=== PATIENT | female | born 1950 | race Caucasian/White ===

== ENCOUNTER 2017-09-20 08:46 | Outpatient (CLI) | payer MEDICARE, BC ==
[2017-09-20 09:58] LABS: Hemoglobin 14.1 g/dL (12.0-16.0); Mean Corpuscular Hemoglobin 29.7 pg (27.0-31.0); Mean Corpuscular Volume 92.8 fl (81.0-99.0); Mean Platelet Volume 7.6 fL (7.4-10.4); Platelet Count 246 thou/uL (130-400); RBC Distribution Width 11.4 % (11.5-14.5); Red Blood Cell (RBC) Count 4.75 mill/uL (4.20-5.40); White Blood Cell (WBC) Count 5.8 thou/uL (4.8-10.8)
--- NOTE | 2017-09-20 10:56 | RAD ---
PA AND LATERAL VIEWS CHEST: Date: 09/20/17 HISTORY: Preoperative evaluation. FINDINGS: The heart size is normal. The lungs are well expanded without confluent areas of consolidation, pneum othoraces, or pleural effusions. There are degenerative changes in the spine. IMPRESSION: No radiographic evidence of acute cardiopulmonary process. POS: JUANH
== END 2017-09-20 08:47 | disposition home or self-care (01) ==
LOC: LABBT 08:46
PROVIDERS: ATTEND Orthopaedic Surgery
DX: Z01.818 Encounter for other preprocedural examination (principal); Z01.812 Encounter for preprocedural laboratory examination; M65.311 Trigger thumb, right thumb
CPT/HCPCS: 71046; 85027

== ENCOUNTER 2017-09-22 07:54 | Day surgery (SDC) | payer MEDICARE, BC ==
--- NOTE | 2017-09-21 08:50 | HP ---
HISTORY OF PRESENT ILLNESS: The patient is a 67-year-old right-handed female with a several month hi story of pain, popping and catching in her dominant right thumb. She has had no injury. She has had persistent symptoms despite rest, restriction of activities, anti-inflammatory medications, and a pr evious flexor tendon sheath injection which provided short term relief approximately 4 months ago. PAST MEDICAL HISTORY: The patient has had previous carpal tunnel release. She has a history of esteban rgies. CURRENT MEDICATIONS: Thyroid replacement. ALLERGIES: She has no known allergies. FAMILY HISTORY/SOCIAL HISTORY/REVIEW OF SYSTEMS: Otherwise unremarkable. PHYSICAL EXAMINATION: GENERAL: Reveals a healthy, thin female. HEENT: Unremarkable. NECK: Supple. CHEST: Clear. HEART: Regular rate and rhythm. ABDOMEN: Soft, nontender. PELVIC/RECTAL/BREAST: Exams are deferred. EXTREMITIES: Pertinent findings related to the right thumb. There is tenderness and a nodule presen t over the A1 sonia. There is triggering with range of motion, all tendons are functioning. There is no instability. Neurovascular exam is intact. IMPRESSION: Right trigger thumb. PLAN: Right trigger thumb release. The nature of the surgery, length of recovery, and potential com plications such as infection, loss of motion, neurovascular injury, recurrence, and need for addition al treatment or repeat surgery have been discussed in detail.
[2017-09-22] MEDS ORDERED: Scopolamine 1.5 mg/72 hour Patch ONE (08:27)
[2017-09-22] MEDS ORDERED: Midazolam HCl 2 mg/2 ml Vial ONE (09:16)
[2017-09-22] MEDS ORDERED: CEFAZOLIN/Water 2 GM/20 ML SYRINGE ONE (09:57)
[2017-09-22] MEDS ORDERED: Lidocaine 1% (PF) 30 ML VIAL ONE (10:00)
[2017-09-22] MEDS ORDERED: Fentanyl 100 MCG/2 ML VIAL ONE (10:22)
--- NOTE | 2017-09-22 12:05 | OP ---
DATE OF PROCEDURE: 09/22/2017 SURGEON: Jeovany Amador M.D. ANESTHESIA: General. PREOPERATIVE DIAGNOSIS: Right trigger thumb. POSTOPERATIVE DIAGNOSIS: Right trigger thumb. PROCEDURE PERFORMED: Right trigger thumb release. NARRATIVE REPORT: After satisfactory anesthesia was induced in supine position, the patient was prep ped and draped in the routine manner. Right arm was elevated, exsanguinated with an Esmarch bandage, and the tourniquet inflated to 225 mmHg. A 2 cm transverse incision was made over the palmar aspect of the right thumb A1 sonia, carried down to subcutaneous tissues. Bleeding points controlled with Bovie cautery. Care was taken to avoid injury to the neurovascular bundles, which were gently retra cted. The A1 sonia was then exposed with sharp and blunt dissection and then divided in its entiret y from a proximal to distal with small scissors. It was moderately severely constricted and there wa s moderate tenosynovitis present. Following release of the A1 sonia, there is full range of motion of the thumb and the flexor tendons could be brought into the wound and there was no further triggeri ng. The wound was then thoroughly irrigated and the subcutaneous tissues injected with 10 mL of 1% l idocaine. Skin was closed with interrupted 4-0 nylon. A sterile bulky compressive dressing was appl ied and the tourniquet deflated after 18 minutes. The hand promptly pinked up and the patient was aw akened and taken to the recovery room in stable condition. There were no apparent intraoperative com plications. The estimated blood loss was negligible. The patient will be discharged home in satisfactory condition. She was instructed in ice, elevation, and given written wound care instructions. She has hydrocodone at home for pain. She will be reche cked in my office in 10-14 days or sooner if there are any problems prior to that time.
[2017-09-22] MEDS ORDERED: Ondansetron HCl/PF 4 MG/2 ML Vial ONE (15:59)
[2017-09-22] MEDS ORDERED: Ketorolac Tromethamine 30 MG/ML VIAL ONE (15:59)
[2017-09-22] MEDS ORDERED: Dexamethasone 20 MG/5 ML VIAL ONE (15:59)
[2017-09-22] MEDS ORDERED: PROPOFOL 200 MG/20 ML VIAL ONE (15:59)
== END 2017-09-22 12:50 | disposition home or self-care (01) ==
LOC: SDC 07:54
PROVIDERS: ATTEND Orthopaedic Surgery
PROC: 0LN70ZZ Release Right Hand Tendon, Open Approach (ICD-10-PCS; principal; 2017-09-22)
DX: M65.311 Trigger thumb, right thumb (principal); J45.909 Unspecified asthma, uncomplicated; Z79.51 Long term (current) use of inhaled steroids; Z79.899 Other long term (current) drug therapy; Z98.891 History of uterine scar from previous surgery; Z90.89 Acquired absence of other organs; Z98.890 Other specified postprocedural states
CPT/HCPCS: J1100; J1885; J2001; J2250; J2405; J2704; J3010

== ENCOUNTER 2019-03-22 09:42 | Outpatient (CLI) | payer MEDICARE, BC ==
--- NOTE | 2019-03-22 11:23 | MMO ---
Bilateral MAMMO Bilat Screen [facility]. CLINICAL HISTORY: Patient is 68 years old and is seen for screening. The patient has the following family history of breast cancer: paternal aunt, PANCREATIC AND COLON. The patient has no personal history of cancer. VIEWS: The views performed were: bilateral craniocaudal with tomosynthesis and bilateral mediolateral oblique with tomosynthesis. FILMS COMPARED: The present examination has been compared to prior imaging studies performed at [facility] on 03/13/2015, 03/16/2016, 03/17/2017 and 03/21/2018. MAMMOGRAM FINDINGS: There are scattered fibroglandular densities. There are stable benign appearing calcifications seen in both breasts. There are no suspicious masses, suspicious calcifications, or new areas of architectural distortion. IMPRESSION: THERE IS NO MAMMOGRAPHIC EVIDENCE OF MALIGNANCY. A ROUTINE FOLLOW-UP MAMMOGRAM IN 1 YEAR IS RECOMMENDED. THE RESULTS OF THIS EXAM WERE SENT TO THE PATIENT. ACR BI-RADS Category 2 - Benign finding MAMMOGRAPHY NOTE: 1. A negative mammogram report should not delay a biopsy if a dominant of clinically suspicious mass is present. 2. Approximately 10% to 15% of breast cancers are not detected by mammography. 3. Adenosis and dense breasts may obscure an underlying neoplasm. Reported by: ASHWINI ASCENCIO MD Electonically Signed: [id number]
== END 2019-03-22 09:43 | disposition home or self-care (01) ==
LOC: BICMAMMO 09:42
PROVIDERS: ATTEND Internal Medicine
DX: Z12.31 Encounter for screening mammogram for malignant neoplasm of breast (principal); Z80.3 Family history of malignant neoplasm of breast; Z80.8 Family history of malignant neoplasm of other organs or systems
CPT/HCPCS: 77063; 77067

== ENCOUNTER 2020-06-21 06:24 | Outpatient (CLI) | payer MEDICARE, BC ==
[2020-06-21 11:25] LABS: #Basophils 0.1 10x3/uL (0.0-0.2); #Eosinphils 0.1 10x3/uL (0.0-0.5); #Monocytes 0.7 10x3/uL (0.0-1.1); #Neutrophils 4.3 10x3/uL (1.5-8.4); %Basophils 0.9 % (0.0-2.0); %Eosinophils 2.1 % (0.0-6.0); %Lymphocytes 21.4 % (18.0-47.0); %Monocytes 10.5 % (0.0-10.0); %Neutrophils 64.8 % (40.0-75.0); Hemoglobin 13.6 g/dL (12.0-16.0); Mean Corpuscular HGB CONC 33.3 G/DL (32.0-36.0); Mean Corpuscular Volume 90.1 fl (80.0-100.0); Mean Platelet Volume 10.2 fl (7.4-10.4); Platelet Count 290 10x3/uL (130-400); RBC Distribution Width 13.2 % (11.5-14.5); Red Blood Cell (RBC) Count 4.53 10x6/uL (3.90-5.20); White Blood Cell (WBC) Count 6.7 10x3/uL (4.5-11.0)
[2020-06-21 17:55] LABS: SARS-CoV-2 MS2 Positive; SARS-CoV-2 N Gene Negative; SARS-CoV-2 S Gene Negative; SARS-CoV-2 by NAA Not Detected (NotDetected); SARS-CoV-2 orf1ab Negative
--- NOTE | 2020-06-26 08:30 | EKG ---
Test Reason : PREOP Blood Pressure : / mmHG Vent. Rate : 054 BPM Atrial Rate : 054 BPM P-R Int : 156 ms QRS Dur : 068 ms QT Int : 438 ms P-R-T Axes : 075 072 069 degrees QTc Int : 415 ms Sinus bradycardia Otherwise normal ECG No previous ECGs available Confirmed by SAMIRA CHILEL, SOHA ([id number]) on 06/26/2020 8:30:18 AM Referred By: Shruthi BRITO Confirmed By:SOHA HOGAN MD
== END 2020-06-21 06:25 | disposition home or self-care (01) ==
LOC: LABBT 06:24
PROVIDERS: ATTEND Orthopaedic Surgery
DX: Z01.818 Encounter for other preprocedural examination (principal); Z20.828 Contact with and (suspected) exposure to other viral communicable diseases; M65.321 Trigger finger, right index finger
CPT/HCPCS: 85025; 93005; U0003; 87635; 93010

== ENCOUNTER 2020-06-26 06:25 | Day surgery (SDC) | payer MEDICARE, BC ==
--- NOTE | 2020-06-25 08:51 | HP ---
HISTORY OF PRESENT ILLNESS: The patient is a 69-year-old female with a one year history of gradually progressing triggering in her right index finger, this is despite rest, restriction of activities, anti-inflammatory medications. She has had previous trigger thumb release with good results. PAST MEDICAL HISTORY: The patient is otherwise in good health. In May of last year she had a transient global amnesia episode which has resolved. She takes thyroid replacement. She has had previous carpal tunnel release. CURRENT MEDICATIONS: 1. Dupixent. 2. Advair. 3. Thyroid. 4. Low-dose aspirin. 5. Pravastatin. ALLERGIES: SHE HAS NO KNOWN ALLERGIES. FAMILY HISTORY: Otherwise unremarkable. SOCIAL HISTORY: Otherwise unremarkable. REVIEW OF SYSTEMS: Otherwise unremarkable. PHYSICAL EXAMINATION: GENERAL: Reveals a healthy female. HEENT: Unremarkable. NECK: Supple. CHEST: Clear. HEART: Regular rate and rhythm. ABDOMEN: Soft, nontender. PELVIC: Deferred. RECTAL: Deferred. BREASTS: Deferred. EXTREMITIES: Pertinent findings related to the right hand and index finger. There is prominence and tenderness over the A1 sonia of the right index finger. There is crepitus with range of motion. Neurovascular exam is intact. There is full range of motion. IMPRESSION: Trigger finger, right index finger. PLAN: Right index trigger finger release. The nature of the surgery, length of recovery, and potential complications such as infection, loss of motion, incomplete relief, digital nerve injury, recurrence, need for additional treatment, and repeat surgery have been discussed in detail. Job ID: [id number]
[2020-06-25 10:37] VITALS: BMI 18.7
[2020-06-26] MEDS ORDERED: Scopolamine 1.5 mg/72 hour Patch ONE (07:20)
[2020-06-26] MEDS ORDERED: Midazolam HCl 2 mg/2 ml Vial ONE (07:20)
[2020-06-26] MEDS ORDERED: Bupivacaine PF 0.5% 30 ML VIAL ONE (08:48)
[2020-06-26] MEDS ORDERED: Lidocaine 1% (PF) 30 ML VIAL ONE (08:48)
[2020-06-26] MEDS ORDERED: Fentanyl 100 MCG/2 ML VIAL ONE (08:53)
--- NOTE | 2020-06-26 10:21 | OP ---
DATE OF PROCEDURE: 06/26/2020 ANESTHESIA: General. PREOPERATIVE DIAGNOSIS: Right index trigger finger. POSTOPERATIVE DIAGNOSIS: Right index trigger finger. PROCEDURES PERFORMED: Right index trigger finger release. DESCRIPTION OF PROCEDURE: After satisfactory anesthesia was induced in supine position, the patient was prepped and draped in routine manner. The right arm was elevated and exsanguinated with an Esmarch bandage and the tourniquet inflated to 250 mmHg. A 1.5 cm transverse incision was made over the A1 sonia of the index finger in the right palm and carried down through the subcutaneous tissues. Bleeding points were controlled with Bovie cautery. Using sharp and blunt dissection, the A1 sonia was identified. The digital neurovascular bundles were retracted and protected throughout the procedure. The A1 sonia was then divided in a proximal to distal direction with small scissors completely dividing the sonia. The segment of the sonia was also excised. It was quite tight. After this, the flexor tendons could be pulled into the wound and there was full range of motion of the finger and no further triggering. The wound was thoroughly irrigated. A metacarpal block with a mixture of 1% lidocaine and 0.5% Marcaine was performed, 10 mL. Additional 10 mL irrigated about the incision. The incision was then closed with interrupted 3-0 nylon. A sterile bulky compressive dressing was applied and the tourniquet deflated after 13 minutes. The hand promptly pinked up. The patient was awakened and taken to the recovery room in stable condition. There were no apparent intraoperative complications. The estimated blood loss was negligible. The patient will be discharged home in satisfactory condition. Instructed on ice and elevation and wound care instructions. She has [place] 5 at home for pain. She will be rechecked in my office in approximately 2 weeks or sooner if there are any problems prior to that time. Job ID: [id number]
== END 2020-06-26 11:24 | disposition home or self-care (01) ==
LOC: SDC 06:25
PROVIDERS: ATTEND Orthopaedic Surgery
PROC: 0LN70ZZ Release Right Hand Tendon, Open Approach (ICD-10-PCS; principal; 2020-06-26)
DX: M65.321 Trigger finger, right index finger (principal); Z79.82 Long term (current) use of aspirin; Z79.899 Other long term (current) drug therapy; Z98.890 Other specified postprocedural states
CPT/HCPCS: J0690; J2001; J2250; J3010; S0020

== ENCOUNTER 2021-03-26 08:02 | Outpatient (CLI) | payer MEDICARE, BC | END 2021-03-26 08:03 | disposition home or self-care (01) | LOC: BICMAMMO 08:02 | PROVIDERS: ATTEND Internal Medicine | DX: Z12.31 Encounter for screening mammogram for malignant neoplasm of breast (principal); Z80.3 Family history of malignant neoplasm of breast | CPT/HCPCS: 77063; 77067 ==

== ENCOUNTER 2022-03-27 09:08 | Outpatient (CLI) | payer MEDICARE, BC | END 2022-03-27 09:09 | disposition home or self-care (01) | LOC: BICMAMMO 09:08 | PROVIDERS: ATTEND Internal Medicine | DX: Z12.31 Encounter for screening mammogram for malignant neoplasm of breast (principal) | CPT/HCPCS: 77063; 77067 ==

== ENCOUNTER 2023-04-14 11:53 | Outpatient (CLI) | payer MEDICARE, BC | END 2023-04-14 11:54 | disposition home or self-care (01) | LOC: BICMAMMO 11:53 | PROVIDERS: ATTEND Internal Medicine | DX: Z12.31 Encounter for screening mammogram for malignant neoplasm of breast (principal); Z80.3 Family history of malignant neoplasm of breast | CPT/HCPCS: 77063; 77067 ==